=== PATIENT | female | born 1955 | race Caucasian/White ===

== ENCOUNTER → 2018-12-03 | Day surgery (SDC) | payer BC ==
[~2018-12-03] MED LIST: Lactated Ringers 1,000 ML IV SCH; Meperidine PF 50 MG/ML Syringe IV ONE; Midazolam 1 MG/ML 2 ML SDV IV ONE
--- NOTE | 2018-12-03 13:40 | OR ---
DATE OF OPERATION: 12/03/2018 PREOPERATIVE DIAGNOSIS: FAMILY HISTORY OF COLON CANCER. POSTOPERATIVE DIAGNOSIS: FAMILY HISTORY OF COLON CANCER. SURGEON: Scot Gutierrez MD PROCEDURE: FULL-LENGTH COLONOSCOPY. ANESTHESIA: Conscious sedation with 75 mg Demerol, 6 mg Versed with continuous O2 sat monitoring and nurse assist. The patient's sats remained above 90% the entire procedure. COMPLICATIONS: None. SPECIMEN: None. FINDINGS: Normal full-length colonoscopy. RECOMMENDATIONS: Followup colonoscopy every 5 years. INDICATIONS: The patient was in to see Rina Fuller for routine exam. Her brother was recently diagnosed with colon cancer. She is approximately 10 years from her last scope. DESCRIPTION OF PROCEDURE: The patient was prepped and draped, placed in left lateral decubitus position. A lubricated Olympus colonoscope was inserted and safely and easily advanced to the cecum. Direct visualization of the ileocecal valve and appendiceal orifice was accomplished. The bowel prep was fine. Upon withdrawal of the scope throughout the entire length of the colon, I could find no signs of polyps, mass, ulceration, or bleeding sites. No vascular abnormalities or signs of colitis. The rectal vault was unremarkable. Retroflexion of the scope in the rectum showed some perianal skin tags, otherwise benign. Air was then suctioned, scope removed without complication. FRANCISCO/SHANNAN /[id number]
== END ==
LOC: CC.SDS 08:43
PROVIDERS: ATTEND Family Medicine
DX: Z12.11 Encounter for screening for malignant neoplasm of colon (principal); I10 Essential (primary) hypertension; E78.00 Pure hypercholesterolemia, unspecified; Z87.891 Personal history of nicotine dependence; Z79.899 Other long term (current) drug therapy; Z80.0 Family history of malignant neoplasm of digestive organs; Z88.2 Allergy status to sulfonamides
CPT/HCPCS: J2175; J2250; J7120